=== PATIENT | male | born 1945 | race Caucasian/White ===

== ENCOUNTER 2023-02-22 14:02 | Inpatient (IN) | payer OTHER ==
[2023-02-22] MEDS ORDERED: Scopolamine 1.5 mg/72 hour Patch TOP PRN (14:30)
[2023-02-22] MEDS ORDERED: Lorazepam 2 MG/ML VIAL SLOW IVP PRN (14:30)
[2023-02-22] MEDS ORDERED: Morphine 2 MG/ML VIAL SLOW IVP SCH (14:30)
== END 2023-02-22 15:42 | disposition expired | DRG 951 ==
LOC: CCU 14:02
PROVIDERS: ADMIT Internal Medicine; ATTEND Internal Medicine
DX: Z51.5 Encounter for palliative care (principal); G93.41 Metabolic encephalopathy; N17.9 Acute kidney failure, unspecified; E87.20 Acidosis, unspecified; I13.0 Hypertensive heart and chronic kidney disease with heart failure and stage 1 through stage 4 chronic kidney disease, or unspecified chronic kidney disease; I25.10 Atherosclerotic heart disease of native coronary artery without angina pectoris; I50.9 Heart failure, unspecified; R91.8 Other nonspecific abnormal finding of lung field; N40.0 Benign prostatic hyperplasia without lower urinary tract symptoms; N18.9 Chronic kidney disease, unspecified; Z87.891 Personal history of nicotine dependence; Z88.8 Allergy status to other drugs, medicaments and biological substances; Z90.49 Acquired absence of other specified parts of digestive tract; Z90.89 Acquired absence of other organs; Z98.890 Other specified postprocedural states